=== PATIENT | female | born 1965 ===

== ENCOUNTER 2018-08-09 09:14 | Outpatient (CLI) | payer SELFPAY | END 2018-08-09 09:15 | disposition home or self-care (01) | LOC: C.LAB 09:14 | DX: M51.27 Other intervertebral disc displacement, lumbosacral region (principal); R06.2 Wheezing ==

== ENCOUNTER 2018-08-16 09:44 | Outpatient (CLI) | payer SELFPAY | END 2018-08-16 09:45 | disposition home or self-care (01) | LOC: C.CARD 09:44 | DX: R06.02 Shortness of breath (principal) ==

== ENCOUNTER 2018-09-20 12:47 | Emergency (ER) | payer SELFPAY ==
[2018-09-20 13:31] VITALS: BMI 25.7
[2018-09-20 13:33] VITALS: O2SAT 100
--- NOTE | 2018-09-20 13:59 | C.PDOC ---
History Of Present Illness The patient reports that she has been experiencing several weeks history of bilateral knee pain. The patient reports that she had an accident where she fell but never got it checked. Patient is natalia to ambulate but with pain. Denies numbness, weakness, fever, rash, swelling. Time Seen by Provider: 09/20/18 13:40 Chief Complaint (Nursing): Lower Extremity Problem/Injury History Per: Patient History/Exam Limitations: no limitations Onset/Duration Of Symptoms: Persistent Current Symptoms Are (Timing): Still Present Pain Scale Rating Of: 6 Recent travel outside of the [place]: No Additional History Per: Patient (states worse with walking) - Knee Alleviating Factor(s): Elevation Past Medical History Reviewed: Historical Data, Nursing Documentation, Vital Signs Vital Signs: Last Vital Signs Temp 99.2 F 09/20/18 13:31 Pulse 61 09/20/18 13:31 Resp 20 09/20/18 13:31 BP 128/64 09/20/18 13:31 Pulse Ox 100 09/20/18 13:31 - Medical History PMH: HTN Family History: States: Unknown Family Hx - Social History Hx Tobacco Use: No Hx Alcohol Use: No Hx Substance Use: No - Immunization History Hx Tetanus Toxoid Vaccination: No Hx Influenza Vaccination: No Hx Pneumococcal Vaccination: No Review Of Systems Constitutional: Negative for: Fever Eyes: Negative for: Pain ENT: Negative for: Ear Pain Cardiovascular: Negative for: Chest Pain Respiratory: Negative for: Cough, Shortness of Breath Gastrointestinal: Negative for: Abdominal Pain Musculoskeletal: Negative for: Neck Pain Skin: Negative for: Rash, Lesions Neurological: Negative for: Weakness, Numbness Physical Exam - Physical Exam Appears: Non-toxic, No Acute Distress Skin: Normal Color, Warm, No Rash Head: Atraumatic, Normacephalic Eye(s): bilateral: Normal Inspection, PERRL, EOMI Oral Mucosa: Moist Throat: No Erythema, No Exudate Neck: Normal ROM, Supple Chest: Symmetrical, No Tenderness Cardiovascular: Rhythm Regular, No Friction Rub, No Murmur Respiratory: Normal Breath Sounds, No Accessory Muscle Use, No Wheezing Gastrointestinal/Abdominal: Soft, No Tenderness Back: No CVA Tenderness ( ) Extremity: Normal ROM, No Swelling Neurological/Psych: Oriented x3, Normal Speech, Normal Motor, Normal Sensation Gait: Steady ED Course And Treatment O2 Sat by Pulse Oximetry: 100 (on Ra) Pulse Ox Interpretation: Normal Medical Decision Making Medical Decision Making: On re-exam, the patient reports improvement of symptoms. Lungs are CTA, heart is RRR, abdomen is soft, non-tender and tolerating PO well. Pt is ambulatory in the ED with steady gait. Follow up with the medical doctor within 1-2 days. Return if worsened. Disposition - Disposition Referrals: [facility] at [facility] [Outside] Kobe Hatch MD [Staff Provider] - David Jimenez MD [Staff Provider] - Disposition: HOME/ ROUTINE Disposition Time: 15:00 Condition: GOOD Additional Instructions: Follow up with the medical doctor within 1-2 days. Return if worsened. Prescriptions: Acetaminophen [Tylenol] 325 mg PO Q6 PRN #30 tab PRN Reason: Pain, Mild (1-3) Naproxen [Naprosyn] 500 mg PO BID #20 tab Instructions: Osteoarthritis (DC), Chronic Knee Pain Forms: [employer] ([place]) Print Language: JAPANESE - Clinical Impression Clinical Impression: Knee sprain, Knee pain, Arthritis
[2018-09-20 15:22] VITALS: BP 132/80; PULSE 60; RESP 16; TEMP 98.2
--- NOTE | 2018-09-20 18:23 | RAD ---
Date of service: 09/20/2018 PROCEDURE: Bilateral Knee Radiographs. HISTORY: knee pain bilateral x months COMPARISON: None. FINDINGS: BONES: Right Knee: Normal. No fracture. Left Knee: Normal. No fracture. JOINTS: Right Knee: Normal. No osteoarthritis. Left knee: Normal. No osteoarthritis. SOFT TISSUES: Right Knee: Normal. Left Knee: Normal. JOINT EFFUSION: Right Knee: None. Left Knee: None. OTHER FINDINGS: None. IMPRESSION: Unremarkable radiographs of the knees.
== END 2018-09-20 15:21 | disposition home or self-care (01) ==
LOC: C.ER 12:47
DX: M25.561 Pain in right knee (principal); M25.562 Pain in left knee; M17.10 Unilateral primary osteoarthritis, unspecified knee; S83.90XA Sprain of unspecified site of unspecified knee, initial encounter; W19.XXXA Unspecified fall, initial encounter
CPT/HCPCS: 73562; 96372; 99284; J1885